=== PATIENT | female | born 1965 | race Caucasian/White ===

== ENCOUNTER 2021-01-13 17:54 | Inpatient (IN) | payer OTHER ==
[~2021-01-13] VITALS: Ht 157.5 cm; Wt 88.6 kg
[~2021-01-13 17:54] MED LIST: AZITHROMYCIN250 MG PO; FLUID PILL PO; HUMULIN N100 UNIT/3 SQ; LEVEMIR100 UNIT/1 SQ
[2021-01-13 20:06] LABS: BASOPHIL 0.5 % (0-2); EOSINOPHIL 0 % (0-5); HCT 44.3 % (37.0-47.0); HGB 14.2 g/dl (12.5-16.0); LYMPHOCYTE 7.6 % (15-48); MCH 28.6 pg (25.0-31.0); MCHC 32.1 g/dL (32.0-36.0); MCV 89.1 fL (78.0-100.0); MONOCYTE 2.9 % (0-12); MPV 10.4 fL (6.0-9.5); NRBC 0; PLT 502 K/uL (150-400); RBC 4.97 M/uL (4.20-5.40); RDW 13.2 % (11.5-14.0); WBC 19.7 K/uL (4.0-10.5)
[2021-01-13 20:09] LABS: NEUTROPHIL 86.3 % (41-80)
[2021-01-13 20:23] LABS: ALBUMIN 2.3 g/dL (3.4-5.0); BILIRUBIN - TOTAL 0.4 mg/dL (0.2-1.0); BUN/CREAT RATIO (CALC) 35.3 RATIO; CREATININE 0.68 mg/dL (0.51-0.95); GLOBULIN (CALCULATION) 6.3 g/dL; POTASSIUM 3.7 mmol/L (3.5-5.1); TOTAL PROTEIN 8.6 g/dL (6.4-8.2)
[2021-01-13 20:35] LABS: LACTIC ACID 1.4 mmol/L (0.4-1.9)
[2021-01-13 21:52] LABS: MAGNESIUM 2.2 mg/dL (1.8-2.4)
[2021-01-14 01:59] LABS: BUN/CREAT RATIO (CALC) 42.9 RATIO; CREATININE 0.49 mg/dL (0.51-0.95); POTASSIUM 3.3 mmol/L (3.5-5.1)
[2021-01-14 06:02] LABS: BASOPHIL 0.4 % (0-2); EOSINOPHIL 0 % (0-5); HCT 37.7 % (37.0-47.0); HGB 12.2 g/dl (12.5-16.0); LYMPHOCYTE 16.2 % (15-48); MCH 28.4 pg (25.0-31.0); MCHC 32.4 g/dL (32.0-36.0); MCV 87.9 fL (78.0-100.0); MONOCYTE 5.3 % (0-12); MPV 10.4 fL (6.0-9.5); NEUTROPHIL 76.3 % (41-80); NRBC 0; PLT 441 K/uL (150-400); RBC 4.29 M/uL (4.20-5.40); RDW 13.2 % (11.5-14.0); WBC 18.5 K/uL (4.0-10.5)
[2021-01-14 06:31] LABS: ALBUMIN 1.9 g/dL (3.4-5.0); ALKALINE PHOSHATASE 157 U/L (46-116); ALT 9 U/L (14-59); AST 9 U/L (15-37); BILIRUBIN - TOTAL 0.3 mg/dL (0.2-1.0); BUN 19 mg/dL (7-18); BUN/CREAT RATIO (CALC) 40.4 RATIO; C-REACTIVE PROTEIN >18.00 mg/dL (<=0.90); CHLORIDE 110 mmol/L (98-107); CO2 (BICARBONATE) 13 mmol/L (21-32); CREATININE 0.47 mg/dL (0.51-0.95); GLOBULIN (CALCULATION) 4.9 g/dL; GLUCOSE 197 mg/dL (74-106); POTASSIUM 2.8 mmol/L (3.5-5.1); TOTAL PROTEIN 6.8 g/dL (6.4-8.2)
[2021-01-14 06:32] LABS: BAND 1 % (0-10); LYMPHOCYTE(M) 20 % (15-48); MONOCYTE(M) 2 % (0-12); NEUTROPHILS(M) 73 % (41-80); PROMYELOCYTE 4; TOTAL CELL COUNT 100
[2021-01-14 06:33] LABS: PLATELET ESTIMATE INCREASED; PLATELET MORPHOLOGY NORMAL
[2021-01-14] MEDS ORDERED: HUMALOG JU100 UNIT/1 SC (10:13)
[2021-01-14] MEDS ORDERED: PLAVIX75 MG PO (10:13)
[2021-01-14] MEDS ORDERED: LEVEMIR VI100 UNITS/ SC (10:15)
[2021-01-14] MEDS ORDERED: GABAPENTIN600 MG PO (10:16)
[2021-01-14] MEDS ORDERED: NEURONTIN100 MG PO (10:16)
[2021-01-14] MEDS ORDERED: SANTYL15 GM TOP (10:17)
[2021-01-14] MEDS ORDERED: ZOLOFT50 MG PO (10:17)
[2021-01-14 12:36] LABS: BUN/CREAT RATIO (CALC) 34.9 RATIO; CREATININE 0.43 mg/dL (0.51-0.95); POTASSIUM 3.4 mmol/L (3.5-5.1)
[2021-01-14 18:35] LABS: BUN/CREAT RATIO (CALC) 24.5 RATIO; CREATININE 0.49 mg/dL (0.51-0.95); POTASSIUM 3.8 mmol/L (3.5-5.1)
[2021-01-15 00:59] LABS: CREATININE 0.46 mg/dL (0.51-0.95)
[2021-01-15 09:05] LABS: BASOPHIL 0.3 % (0-2); EOSINOPHIL 0.1 % (0-5); HCT 31.9 % (37.0-47.0); HGB 10.7 g/dl (12.5-16.0); LYMPHOCYTE 19.4 % (15-48); MCH 28.4 pg (25.0-31.0); MCHC 33.5 g/dL (32.0-36.0); MCV 84.6 fL (78.0-100.0); MONOCYTE 6.9 % (0-12); MPV 10.3 fL (6.0-9.5); NEUTROPHIL 71.3 % (41-80); NRBC 0; PLT 362 K/uL (150-400); RBC 3.77 M/uL (4.20-5.40); RDW 13.5 % (11.5-14.0)
[2021-01-15 09:11] LABS: WBC 15.5 K/uL (4.0-10.5)
[2021-01-15 09:16] LABS: BUN/CREAT RATIO (CALC) 15.7 RATIO; CREATININE 0.51 mg/dL (0.51-0.95)
[2021-01-15 14:37] LABS: BUN/CREAT RATIO (CALC) 14.9 RATIO; CREATININE 0.47 mg/dL (0.51-0.95); POTASSIUM 3.6 mmol/L (3.5-5.1)
[2021-01-16 05:56] LABS: BUN/CREAT RATIO (CALC) 8.9 RATIO; CREATININE 0.45 mg/dL (0.51-0.95); POTASSIUM 3.6 mmol/L (3.5-5.1)
[2021-01-16 06:50] LABS: BASOPHIL 0.4 % (0-2); EOSINOPHIL 0.4 % (0-5); HCT 29.3 % (37.0-47.0); HGB 9.9 g/dl (12.5-16.0); MCH 28.4 pg (25.0-31.0); MCHC 33.8 g/dL (32.0-36.0); MCV 84.2 fL (78.0-100.0); MONOCYTE 7.2 % (0-12); MPV 10.9 fL (6.0-9.5); NEUTROPHIL 69.3 % (41-80); NRBC 0; PLT 330 K/uL (150-400); RBC 3.48 M/uL (4.20-5.40); RDW 13.7 % (11.5-14.0); WBC 13.5 K/uL (4.0-10.5)
[2021-01-16 07:07] LABS: LYMPHOCYTE 20.4 % (15-48)
--- NOTE | 2021-01-16 17:23 | NUR ---
01/16/21 1630 ORDER RECEIVED FOR PICC LINE PLACEMENT. RISKS AND BENEFITS EXPLAINED. CONSENT SIGNED. PT'S LEFT UPPER ARM BASILIC VEIN VISUALIZED USING THE S[employer] RITE 6 ULTRASOUND MACHINE. PT THEN PREPPED AND DRAPED IN STERILE FASHION. THE AREA WAS CLEANSED WITH CHLORAPREP. THE AREA WAS ANESTHETIZED WITH 1% LIDOCAINE. A 21GA GUIDE NEEDLE WAS USED. GOOD BLOOD RETURN. THE SHEATH WAS ATTEMPTED TO BE INSERTED, IT WAS VERY DIFFICULT, THIS WAS ATTEMPTED X 3, A NEW AREA WAS NUMBED AND A 21 GUIDE NEEDLE WAS INSERTED IN ANOTHER AREA ADJACENT TO THE FIRST STICK. GOOD BLOOD RETURN, THE GUIDE WIRE WAS THEN REMOVED AND A CAP WAS PLACED ON THE END. THE PT WAS THEN MEASURED FOR THE PICC PLACEMENT PICC WAS TRIMMED AT 39CM AND FLUSHED. THE INTRODUCER WAS REMOVED AND THE PICC CATHETER WAS ATTEMPTED TO BE GUIDED INTO PLACE WITH THE HELP OF THE S[employer] US MACHINE. THE CATHETER WOULD NOT DROP INTO PLACE, THIS WAS ATTEMPTED SEVERAL TIMES TO DROP IT IN THE SVC WITHOUT SUCCESS. PICC LINE PROCEDURE ABORTED AND A PRESSURE DRESSING APPLIED OVER THE SITE OF INSERTION. REPORT GIVEN TO Aixa HURST IN TCU. PT TOLERATED PROCEDURE WELL. NURSE WAS TOLD THAT THE PICC LINE WILL BE ATTEMPTED TO BE INSERTED IN THE PT'S RIGHT ARM TOMORROW. BED WAS LOWERED TO THE LOWEST POSITION AND SIDERAILS WERE UP X 2 FOR SAFETY.
[2021-01-17 04:10] LABS: BASOPHIL 0.3 % (0-2); EOSINOPHIL 0.7 % (0-5); HCT 27.7 % (37.0-47.0); HGB 9.3 g/dl (12.5-16.0); MCH 28.5 pg (25.0-31.0); MCHC 33.6 g/dL (32.0-36.0); MONOCYTE 7.3 % (0-12); MPV 10.7 fL (6.0-9.5); NEUTROPHIL 61.6 % (41-80); NRBC 0; PLT 296 K/uL (150-400); RBC 3.26 M/uL (4.20-5.40); RDW 13.6 % (11.5-14.0)
[2021-01-17 04:14] LABS: LYMPHOCYTE 27.5 % (15-48)
[2021-01-17 05:00] LABS: BUN/CREAT RATIO (CALC) 9.8 RATIO; CREATININE 0.51 mg/dL (0.51-0.95); FOLIC ACID (SERUM) 9.4 ng/mL (8.6-58.9); POTASSIUM 3.6 mmol/L (3.5-5.1)
--- NOTE | 2021-01-17 15:27 | NUR ---
ORDER RECEIVED FOR PICC LINE PLACEMENT. RISKS AND BENEFITS EXPLAINED. CONSENT SIGNED. PT'S RIGHT UPPER ARM BASILIC VEIN VISUALIZED USING THE [employer] 6 ULTRASOUND MACHINE. PT THEN PREPPED AND DRAPED IN STERILE FASHION. THE AREA WAS CLEANSED WITH CHLORAPREP. THE AREA WAS ANESTHETIZED WITH 1% LIDOCAINE. A 21GA GUIDE NEEDLE WAS USED. GOOD BLOOD RETURN. THE GUIDE WIRE WAS THEN REMOVED AND A CAP WAS PLACED ON THE END. THE PT WAS MEASURED FOR THE PICC PLACEMENT. PICC WAS TRIMMED AT 41 CM AND FLUSHED. THE INTRODUCER WAS REMOVED AND THE PICC CATHETER WAS GUIDED INTO POSITION. THE SHEATH WAS PEELED BACK. A STERILE BIOPATCH WAS PLACED AT THE INSERTION SITE. A STAT LOCK WAS PLACED ON. A STERILE TEGADERM WAS PLACED OVER THE PICC LINE. A STAT PORTABLE CHEST XRAY WAS OBTAINED. PER RADIOLOGIST THE PICC LINE IS IN THE SVC. THE STYLET WAS REMOVED AND THE A CLEAR CAP WAS RADIOLOGIST THE PICC LINE IS IN THE SVC. THE STYLET WAS REMOVED AND THE A CLEAR CAP WAS FLUSHED AND PLACED ON THE END. PT HAS A 4 FR SINGLE LUMEN POWER PICC. TRIMMED AT 41 CM, INSERTION 1 CM, BICEP 34 CM. GOOD BLOOD RETURN NOTED. PT TOLERATED WELL. REPORT GIVEN TO EDILBERTO WARNER ON TCU. STERILE DRESSING APPLIED WITH BIOPATCH, PT TOLERATED THE PROCEDURE WELL. BED LOWERED TO THE GROUND POSITION WITH SR UP X2, CALL LIGHT WITHIN REACH. .
[2021-01-18 05:24] LABS: BASOPHIL 0.3 % (0-2); EOSINOPHIL 0.8 % (0-5); HCT 28.1 % (37.0-47.0); HGB 9.1 g/dl (12.5-16.0); LYMPHOCYTE 25.9 % (15-48); MCH 28.2 pg (25.0-31.0); MCHC 32.4 g/dL (32.0-36.0); MONOCYTE 8.8 % (0-12); MPV 10.8 fL (6.0-9.5); NEUTROPHIL 62.3 % (41-80); NRBC 0; PLT 307 K/uL (150-400); RBC 3.23 M/uL (4.20-5.40); WBC 11.6 K/uL (4.0-10.5)
[2021-01-18 05:40] LABS: C-REACTIVE PROTEIN 14.6 mg/dL (<=0.90); CREATININE 0.67 mg/dL (0.51-0.95); POTASSIUM 3.6 mmol/L (3.5-5.1)
--- NOTE | 2021-01-18 10:48 | NUR ---
01/18/21 Patient reports that she will have surgery today for amp of the great toe. Continuing to monitor for DME and IV antibiotic needs following discharge.
--- NOTE | 2021-01-18 14:44 | NUR ---
1355 PT RETRUNED FROM [facility] AT THIS TIME, PT RESTING EASILY ARROUSED AND TALKING. PT FAMILY MEMBER AT BEDSIDE. NO C/O PAIN AT THIS TIME.
--- NOTE | 2021-01-20 16:21 | NUR ---
01/20/21 Discharge is anticipated for 01/21/21. Patient has a transport wc. Patient has decided against HH. She will see Dr. Maynard on Saturday and request HH orders from Dr. Maynard if needed.
--- NOTE | 2021-01-20 20:10 | NUR ---
DR. LOPEZ CALLED FOR UPDATE ON PT. AND SAID TO REMOVE DRAIN ON RIGHT FOOT. AND TO KEEP DSG IN PLACE TODAY. TO REMOVE AND CHANGE ON DISCHARGE. CALLED @1630. PT TOLERATED DRAIN REMOVAL WITHOUT C/O PAIN OR BLEEDING. 2 5
--- NOTE | 2021-01-22 04:50 | NUR ---
0425 COMPLAINED OF FEELING SHAKY AND NERVOUS, GLUCOSE CHECKED AND RESULTED AT 56. APPLE JUICE AND PEANUT BUTTER GIVEN, WILL CONTINUE TO MONITOR.
--- NOTE | 2021-01-22 05:48 | NUR ---
0505 glucose 104, denies any complaints at this time.
[2021-01-22 07:43] LABS: BASOPHIL 0.3 % (0-2); HCT 25.5 % (37.0-47.0); HGB 8.1 g/dl (12.5-16.0); LYMPHOCYTE 18.7 % (15-48); MCH 28.5 pg (25.0-31.0); MCHC 31.8 g/dL (32.0-36.0); MCV 89.8 fL (78.0-100.0); MPV 9.2 fL (6.0-9.5); NEUTROPHIL 70.2 % (41-80); NRBC 0; PLT 460 K/uL (150-400); RBC 2.84 M/uL (4.20-5.40); RDW 14.5 % (11.5-14.0); WBC 9.1 K/uL (4.0-10.5)
[2021-01-22 08:00] LABS: ALBUMIN 1.5 g/dL (3.4-5.0); BILIRUBIN - TOTAL 0.2 mg/dL (0.2-1.0); BUN/CREAT RATIO (CALC) 13.6 RATIO; CREATININE 0.88 mg/dL (0.51-0.95); GLOBULIN (CALCULATION) 4.2 g/dL; POTASSIUM 4.3 mmol/L (3.5-5.1); TOTAL PROTEIN 5.7 g/dL (6.4-8.2)
--- NOTE | 2021-01-23 13:02 | NUR ---
01/23/21 IV antibiotics were arranged through [facility]. Report given to MS ALANA Salvador
[2021-01-23] MEDS ORDERED: DIFLUCAN200 MG PO (13:40)
[2021-01-23] MEDS ORDERED: VANCO 1 GR1 GM/250 M IV (13:40)
[2021-01-23] MEDS ORDERED: NORCO 5-325 TA1 EACH PO (13:40)
[2021-01-23] MEDS ORDERED: LEVEMIR VI100 UNITS/ SC (13:46)
--- NOTE | 2021-01-23 15:46 | NUR ---
8-9-21 1545 PICC LINE DRESSING CHANGED BEFORE DISCHARGE HOME
== END 2021-01-23 17:15 | disposition home health service (06) | DRG 617 ==
LOC: FER 17:54 → FTCU 22:58 → FICU 22:58 → FTCU 01-15 17:19 → FMS 01-19 22:18
PROVIDERS: Allergy & Immunology Allergy; Emergency Medicine; Internal Medicine; Nurse Practitioner; Podiatrist Foot & Ankle Surgery; ADMIT Internal Medicine
PROC: 02HV33Z Insertion of Infusion Device into Superior Vena Cava, Percutaneous Approach (ICD-10-PCS; 2021-01-17)
PROC: 0Q9N0ZZ Drainage of Right Metatarsal, Open Approach (ICD-10-PCS; 2021-01-18)
PROC: 0Y6P0Z0 Detachment at Right 1st Toe, Complete, Open Approach (ICD-10-PCS; principal; 2021-01-18 11:30)
DX: E11.69 Type 2 diabetes mellitus with other specified complication (principal); M86.8X7 Other osteomyelitis, ankle and foot; L97.518 Non-pressure chronic ulcer of other part of right foot with other specified severity; E11.52 Type 2 diabetes mellitus with diabetic peripheral angiopathy with gangrene; I96 Gangrene, not elsewhere classified; E11.10 Type 2 diabetes mellitus with ketoacidosis without coma; E11.65 Type 2 diabetes mellitus with hyperglycemia; Z20.822 Contact with and (suspected) exposure to COVID-19; D63.8 Anemia in other chronic diseases classified elsewhere; I25.10 Atherosclerotic heart disease of native coronary artery without angina pectoris; E11.621 Type 2 diabetes mellitus with foot ulcer; E11.40 Type 2 diabetes mellitus with diabetic neuropathy, unspecified; E78.5 Hyperlipidemia, unspecified; B95.62 Methicillin resistant Staphylococcus aureus infection as the cause of diseases classified elsewhere; B95.1 Streptococcus, group B, as the cause of diseases classified elsewhere; Z95.5 Presence of coronary angioplasty implant and graft; Z88.0 Allergy status to penicillin; Z88.1 Allergy status to other antibiotic agents; Z90.710 Acquired absence of both cervix and uterus; Z90.89 Acquired absence of other organs; Z98.51 Tubal ligation status; Z87.440 Personal history of urinary (tract) infections
CPT/HCPCS: 36415; 36600; 71045; 73620; 73721; 80048; 80053; 80202; 82009; 82607; 82728; 82746; 82803; 82962; 83036; 83540; 83550; 83605; 83735; 84100; 84484; 85025; 86140; 87040; 87070; 87075; 87077; 87186; 87205; 93005; 93922; 99284; C1751; C9113; J0696; J1170; J1642; J1650; J1956; J2250; J2405; J2704; J3010; J3370; J3480; J7030; J7050; J7120; J7121; U0002

== ENCOUNTER 2021-03-16 15:34 | Emergency (ER) | payer OTHER ==
[~2021-03-16 15:34] MED LIST changes: +DIFLUCAN200 MG PO; +GABAPENTIN600 MG PO; +HUMALOG JU100 UNIT/1 SC; +LEVEMIR VI100 UNITS/ SC; +NEURONTIN100 MG PO; +NORCO 5-325 TA1 EACH PO; +PLAVIX75 MG PO; +SANTYL15 GM TOP; +VANCO 1 GR1 GM/250 M IV; +ZOLOFT50 MG PO
[2021-03-16 17:13] LABS: BASOPHIL 0.2 % (0-2); BILIRUBIN NEGATIVE (NEGATIVE); BLOOD TRACE-LYSED Ery/uL (NEGATIVE); COLOR YELLOW (YELLOW); EOSINOPHIL 0 % (0-5); GLUCOSE (U) 2+ mg/dL (NORMAL); HCT 43.5 % (37.0-47.0); HGB 14.1 g/dl (12.5-16.0); LEUKOCYTES 1+ Leu/uL (NEGATIVE); LYMPHOCYTE 32.4 % (15-48); MCH 26.8 pg (25.0-31.0); MCHC 32.4 g/dL (32.0-36.0); MCV 82.7 fL (78.0-100.0); MONOCYTE 7.1 % (0-12); MPV 9.7 fL (6.0-9.5); NEUTROPHIL 59.6 % (41-80); NITRITE POSITIVE (NEGATIVE); NRBC 0; PLT 305 K/uL (150-400); PROTEIN 1+ mg/dL (NEGATIVE); RBC 5.26 M/uL (4.20-5.40); RDW 13.7 % (11.5-14.0); UROBILINOGEN 0.2 mg/dL (0.2-1.0); WBC 8.3 K/uL (4.0-10.5)
[2021-03-16 17:14] LABS: CLARITY HAZY (CLEAR)
[2021-03-16 17:31] LABS: BACTERIA 1+; URINARY WBC TNTC
[2021-03-16 17:38] LABS: BILIRUBIN - TOTAL 0.4 mg/dL (0.2-1.0); BUN/CREAT RATIO (CALC) 29.8 RATIO; CREATININE 1.14 mg/dL (0.51-0.95); GLOBULIN (CALCULATION) 4.8 g/dL; POTASSIUM 4.6 mmol/L (3.5-5.1); TOTAL PROTEIN 7.8 g/dL (6.4-8.2)
[2021-03-16 17:47] LABS: LACTIC ACID 2.3 mmol/L (0.4-1.9)
[2021-03-16 19:54] LABS: BUN/CREAT RATIO (CALC) 29.7 RATIO; CREATININE 1.01 mg/dL (0.51-0.95); POTASSIUM 4.7 mmol/L (3.5-5.1)
[2021-03-16] MEDS ORDERED: ONDANSETRON ODT4 MG PO (20:23)
[2021-03-16] MEDS ORDERED: LEVAQUIN500 MG PO (20:23)
== END 2021-03-16 21:34 | disposition home or self-care (01) ==
LOC: FER 15:34
PROVIDERS: Emergency Medicine
DX: U07.1 COVID-19 (principal); J12.82 Pneumonia due to coronavirus disease 2019; N39.0 Urinary tract infection, site not specified; E11.40 Type 2 diabetes mellitus with diabetic neuropathy, unspecified
CPT/HCPCS: 36415; 70450; 71045; 80048; 80053; 81001; 83605; 83690; 84145; 84484; 85025; 87076; 87088; 87186; 93005; J1956; J2405; J7030

== ENCOUNTER 2022-03-14 16:29 | Emergency (ER) | payer OTHER ==
[~2022-03-14 16:29] MED LIST changes: +LEVAQUIN500 MG PO; +ONDANSETRON ODT4 MG PO
[2022-03-14 18:59] LABS: BASOPHIL 0.6 % (0-2); EOSINOPHIL 1.6 % (0-5); HCT 35.8 % (37.0-47.0); HGB 11.7 g/dl (12.5-16.0); LYMPHOCYTE 24.1 % (15-48); MCH 27.4 pg (25.0-31.0); MCHC 32.7 g/dL (32.0-36.0); MCV 83.8 fL (78.0-100.0); MPV 10.1 fL (6.0-9.5); NEUTROPHIL 67.4 % (41-80); NRBC 0; PLT 487 K/uL (150-400); RBC 4.27 M/uL (4.20-5.40); RDW 14.5 % (11.5-14.0); WBC 11.6 K/uL (4.0-10.5)
[2022-03-14 19:09] LABS: INR 0.96 (0.9-1.2); PROTHROMBIN TIME 12.5 SECONDS (11.9-13.9)
[2022-03-14 19:19] LABS: ALBUMIN 2.9 g/dL (3.4-5.0); BILIRUBIN - TOTAL 0.3 mg/dL (0.2-1.0); BUN/CREAT RATIO (CALC) 29.6 RATIO; CREATININE 0.98 mg/dL (0.51-0.95); GLOBULIN (CALCULATION) 5.5 g/dL; TOTAL PROTEIN 8.4 g/dL (6.4-8.2)
[2022-03-14 20:22] LABS: BILIRUBIN NEGATIVE (NEGATIVE); BLOOD NEGATIVE Ery/uL (NEGATIVE); CLARITY CLEAR (CLEAR); COLOR YELLOW (YELLOW); GLUCOSE (U) 3+ mg/dL (NORMAL); LEUKOCYTES TRACE Leu/uL (NEGATIVE); NITRITE POSITIVE (NEGATIVE); PROTEIN NEGATIVE (NEGATIVE); SPECIFIC GRAVITY <=1.005 (1.001-1.030); UROBILINOGEN 0.2 mg/dL (0.2-1.0)
[2022-03-14 20:30] LABS: BACTERIA 3+
== END 2022-03-14 22:37 | disposition home or self-care (01) ==
LOC: FER 16:29
PROVIDERS: Physician Assistant
DX: N39.0 Urinary tract infection, site not specified (principal); S91.302D Unspecified open wound, left foot, subsequent encounter; E11.65 Type 2 diabetes mellitus with hyperglycemia; I12.9 Hypertensive chronic kidney disease with stage 1 through stage 4 chronic kidney disease, or unspecified chronic kidney disease; E11.22 Type 2 diabetes mellitus with diabetic chronic kidney disease; N18.9 Chronic kidney disease, unspecified; R06.02 Shortness of breath; Z28.310 Unvaccinated for COVID-19; Z86.16 Personal history of COVID-19; Z89.432 Acquired absence of left foot; X58.XXXD Exposure to other specified factors, subsequent encounter
CPT/HCPCS: 36415; 71275; 80053; 81001; 84145; 85025; 85610; 87076; 87088; 87186; 93970; J7030; Q9967